=== PATIENT | female | born 1980 | race Caucasian/White ===

== ENCOUNTER → 2018-03-03 15:34 | Outpatient (CLI) | payer OTHER, SELFPAY ==
--- NOTE | 2018-03-03 15:34 | DT_ITS ---
This patient was seen during an EMR downtime February 24, 2018 - March 03, 2018. This patient may have a combination of paper and electronic documentation or all paper documentation. All documentation is viewable within the e-chart portion of [employer] for each patient visit.
[2018-03-03 20:07] LABS: Chlamydia Trachomatis by PCR Negative (Negative); Neisserai gonorrhoeae by PCR Negative (Negative); Probe Check PASS; Sample Adequacy Control PASS; Specimen Processing Control PASS
[2018-03-12 14:25] LABS: HPV Reflexed? NOT INDICATED
== END ==
PROVIDERS: Visit Provider Obstetrics & Gynecology
DX: Z11.3 Encounter for screening for infections with a predominantly sexual mode of transmission (principal); Z12.4 Encounter for screening for malignant neoplasm of cervix
CPT/HCPCS: 87491; 87591; 88175; G0145

== ENCOUNTER → 2018-03-20 11:35 | Outpatient (CLI) | payer OTHER, SELFPAY ==
[2018-03-20 12:16] LABS: Color, Urine Straw (Yellow); Glucose, Dipstick Normal (Normal); Ketone-Dipstick Negative (Negative); Leukocyte Esterase-Dipstick Negative /ul (Negative); Nitrite-Dipstick Negative (Negative); Occult Blood-Urine Negative /ul (Negative); Protein-Dipstick Negative (Negative); Urine Bilirubin Dipstick Negative (Negative); Urine Clarity Clear (Clear); Urine Urobilinogen Normal (Normal)
[2018-03-20 12:21] LABS: Absolute Lymphocyte Count 1.65 X10^3/ul (0.83-4.51); Absolute Neutrophil Count 5.2 X10^3/uL (2.0-7.7); Eosinophil# 0.01 X10^3/uL; Eosinophils% 0.1 % (0-5); Hematocrit 38.4 % (37-47); Hemoglobin 12.1 g/dl (12.0-15.0); Lymphocyte # 1.65 X10^3/ul (4.0); Lymphocyte % 22.9 % (19-41); Mean Corp Hgb Conc 31.5 g/gl (32-36); Mean Corpuscular Hgb 25.9 pg (27.0-32.0); Mean Corpuscular Volume 82.1 fL (81-99); Mean Platelet Vol. 10.3 fl (6.2-12.0); Monocyte# 0.38 X10^3/uL; Monocyte% 5.3 % (0-10); Neutrophil # 5.15 X10^3/uL (2.7-7.7); Neutrophil % 71.6 % (47-70); Platelet Count 221 K/mm3 (150-450); RBC Distribution Width CV 13.9 % (11.6-14.6); RBC Distribution Width SD 41.4 fl (35.1-43.9); Red Blood Count 4.68 M/mm3 (4.2-5.4); White Blood Count 7.2 K/mm3 (4.4-11.0)
[2018-03-20 12:23] LABS: POSITIVE COUNT NO; POSITIVE DIFFERENTIAL NO; POSITIVE MORPHOLOGY NO
[2018-03-20 12:29] LABS: Amphetamine Urine VISTA NEGATIVE (<1000 ng/mL); Barbiturate Urine VISTA NEGATIVE (< 200 ng/mL); Benzodiazepine Urine VISTA NEGATIVE (< 200 ng/mL); Cocaine Urine VISTA NEGATIVE (< 300 ng/mL); Ecstacy Urine VISTA NEGATIVE (< 500 ng/mL); Methadone Urine VISTA NEGATIVE (< 300 ng/mL); PCP Urine VISTA NEGATIVE (< 25 ng/mL); THC Urine VISTA NEGATIVE (< 50 ng/mL); Vista UDS pH Range 5
[2018-03-20 12:50] LABS: Thyroid Stim Hormone (TSH) 1.66 uIU/mL (0.358-3.74)
[2018-03-21 05:20] LABS: Prenatal RPR NONREACTIVE (NONREACTIVE)
[2018-03-21 08:48] LABS: HEPATITIS B SURFACE AG Negative (Negative); Hep C Antibodies <0.1 s/co ratio (0.0-0.9)
[2018-03-21 09:15] LABS: HIV - WCH Non-Reactive (Nonreactive); Rubella IgG 71.8 IU/mL
== END ==
PROVIDERS: Visit Provider Obstetrics & Gynecology
DX: Z34.81 Encounter for supervision of other normal pregnancy, first trimester (principal)
CPT/HCPCS: 36415; 80307; 81002; 84443; 85025; 86703; 86762; 86803; 87340

== ENCOUNTER → 2018-08-19 09:50 | Outpatient (CLI) | payer OTHER, SELFPAY ==
[2018-08-19 10:44] LABS: Hematocrit 33.3 % (37-47); Hemoglobin 10.6 g/dl (12.0-15.0); Mean Corp Hgb Conc 31.8 g/gl (32-36); Mean Corpuscular Hgb 26.2 pg (27.0-32.0); Mean Corpuscular Volume 82.4 fL (81-99); Mean Platelet Vol. 9.2 fl (6.2-12.0); Platelet Count 255 K/mm3 (150-450); RBC Distribution Width CV 13.3 % (11.6-14.6); Red Blood Count 4.04 M/mm3 (4.2-5.4); White Blood Count 6.4 K/mm3 (4.4-11.0)
[2018-08-19 10:46] LABS: Scan Indicated on CBC? Y/N NO
[2018-08-19 11:08] LABS: Glucose Challenge Gest 1H 50g 89 mg/dL (70-140)
--- OUTSIDE RECORDS SUMMARY | 2018-10-01 00:06 | XMS RPT_ITS ---
:1980 Author Organization OHIP Care Team Providers Name Role Phone Anthony Briceno Attending Unavailable Anthony Briceno Attending Unavailable Anthony Briceno Attending Unavailable PROBLEMS PROBLEMS DATE TYPE CONDITION / CODE ATTENDING STATUS SOURCE 08/19/2018 Unknown Z34.83 - Encounter Anthony Briceno for supervision of Community other normal Hospital , third Repository trimester / Z34.83(ICD-10) 03/20/2018 Unknown Z34.81 - Encounter Anthony Briceno for supervision of Community other normal Hospital , first Repository trimester / Z34.81(ICD-10) 03/20/2018 Unknown Z11.3 - Encounter Anthony Briceno for screening for Community infections with a Hospital predominantly Repository sexual mode of transmission / Z11.3(ICD-10) PROCEDURES PROCEDURES No Procedure Records FoundRESULTS RESULTS CBC-COMPLETE BLOOD CNT Collected: 08/19/2018 Status: F Source: [facility] NO DIFF 10:00 [facility] RE[facility] TYPE CODE TESTS RESULT OUT OF RANGE REFERENCE UNITS LAB L100.1000 4.4-11.0 K/mm3 Normal WBC 6.4 LAB L100.1200 4.2-5.4 M/mm3 Low RBC 4.04 LAB L100.1300 12.0-15.0 g/dl Low HGB 10.6 LAB L100.1400 37-47 % Low HCT 33.3 LAB L100.1500 81-99 fL Normal MCV 82.4 LAB L100.1600 27.0-32.0 pg Low MCH 26.2 LAB L100.1700 32-36 g/gl Low MCHC 31.8 LAB L100.1810 11.6-14.6 % Normal RDW CV 13.3 LAB L100.1820 35.1-43.9 fl Normal RDW SD 40.0 LAB L100.1900 150-450 K/mm3 Normal PLT 255 LAB L100.2000 6.2-12.0 fl Normal MPV 9.2 Performed By: #### L100.0500 #### [facility] [address] [place], [address] GLUCOSE CHALLENGE GEST Collected: 08/19/2018 Status: F Source: OTF 1H 50G 10:00 AM REPOSITORY TYPE CODE TESTS RESULT OUT OF RANGE REFERENCE UNITS LAB L501.0250 70-140 mg/dL Normal GLU GEST 89 50g 1H Performed By: #### L501.0250 #### [facility] [address] [place], [address] URINE DRUG SCREEN Collected: 03/20/2018 Status: F Source: OTF (VISTA) 11:37 AM REPOSITORY Order Comment: List of Drugs Taken or Suspected? UNK TYPE CODE TESTS RESULT OUT OF RANGE REFERENCE UNITS LAB L505.0075 TO BE Normal CONFIRMED Result Comment: CONFIRMATORY TESTING FOR ALL POSITIVE URINE DRUG SCREEN RESULTS WILL ONLY BE SENT OUT UPON PHYSICIAN ORDER. VISTA Urine Drug Screen methods provide only preliminary analytical test results. A more specific alternate chemical method must be used in order to obtain a confirmed analytical result. Gas chromatography/mass spectrometery (GC/MS) is the preferred confirmatory method. Clinical consideration and professional judgement should be applied to any drug of abuse test result, particularly when preliminary positive results are used. URINE TCA TESTING MUST BE ORDERED SEPARATELY. USE TEST [place]EMONIC: [facility] LAB L505.5005 VISTA UDS PH 5 Normal LAB L505.5015 <1000 ng/mL AMPHETAMINES Normal NEGATIVE LAB L505.5025 < 200 ng/mL BARBITIURATES Normal NEGATIVE LAB L505.5035 < 200 ng/mL BENZODIAZIPINE Normal NEGATIVE LAB L505.5045 < 300 ng/mL COCAINE Normal NEGATIVE LAB L505.5055 < 500 ng/mL ECSTACY Normal NEGATIVE LAB L505.5065 < 300 ng/mL METHADONE Normal NEGATIVE LAB L505.5075 < 300 ng/mL OPIATES Normal NEGATIVE LAB L505.5085 < 25 ng/mL PCP Normal NEGATIVE LAB L505.5095 < 50 ng/mL THC Normal NEGATIVE Performed By: #### L505.5000 #### [facility] [address] [place], [place], [id number] URINALYSIS, ROUTINE Collected: 03/20/2018 Status: F Source: OTF (DIPSTICK) 11:37 AM REPOSITORY Order Comment: How was Urine Obtained? CLEAN CATCH TYPE CODE TESTS RESULT OUT OF RANGE REFERENCE UNITS LAB L400.3000 Yellow COLOR Normal Straw LAB L400.3050 Clear Normal CLARITY Clear LAB L400.3200 Normal mg/dl Normal GLUCOSE, UR Normal LAB L400.3300 Negative mg/dL Normal BILIRUBIN URINE Negative LAB L400.3400 Negative mg/dl Normal KETONE UR Negative LAB L400.3465 1.002-1.030 Normal SP.GR. DIPSTX 1.010 LAB L400.3550 5.0 - 8.0 pH UR Normal 7.0 LAB L400.3600 Negative mg/dl PROT Normal DIPSTX Negative LAB L400.3700 Normal mg/dl Normal UROBILI Normal LAB L400.3750 Negative Normal NITRITE UR Negative LAB L400.3780 Negative /ul Normal OCCULT BLOOD-UR Negative LAB L400.3800 Negative /ul LEUK Normal ESTERASE Negative Performed By: #### L400.2010 #### [facility] [address] [place], [id number] CBC W/DIFF, AUTOMATED Collected: 03/20/2018 Status: F Source: OTF 11:37 AM REPOSITORY TYPE CODE TESTS RESULT OUT OF RANGE REFERENCE UNITS LAB L100.1000 4.4-11.0 K/mm3 Normal WBC 7.2 LAB L100.1200 4.2-5.4 M/mm3 Normal RBC 4.68 LAB L100.1300 12.0-15.0 g/dl Normal HGB 12.1 LAB L100.1400 37-47 % Normal HCT 38.4 LAB L100.1500 81-99 fL Normal MCV 82.1 LAB L100.1600 27.0-32.0 pg Low MCH 25.9 LAB L100.1700 32-36 g/gl Low MCHC 31.5 LAB L100.1810 11.6-14.6 % Normal RDW CV 13.9 LAB L100.1820 35.1-43.9 fl Normal RDW SD 41.4 LAB L100.1900 150-450 K/mm3 Normal PLT 221 LAB L100.2000 6.2-12.0 fl Normal MPV 10.3 LAB L100.2100 47-70 % High NEUT% 71.6 LAB L100.2200 19-41 % Normal LY% 22.9 LAB L100.2300 0-10 % Normal MONO% 5.3 LAB L100.2400 0-5 % Normal EO% 0.1 LAB L100.2500 0-1 % Normal BASO% 0.0 LAB L100.2550 0.0-0.9 % Normal IM GRAN % 0.100 Result Comment: IG% - Immature Granulocytes (promyelocytes, myelocytes and metamyelocytes) > 1% indicates that a LEFT SHIFT is Present. LAB L100.2620 2.0-7.7 X10 3/uL Normal Absolute Neut 5.2 LAB L100.2720 0.83-4.51 X10 3/ul Normal Absolute Lymph 1.65 Performed By: #### L100.0100 #### [facility] [address] [place], [place], [id number] THYROID STIM HORMONE Collected: 03/20/2018 Status: F Source: [place] (TSH) 11:37 AM REPOSITORY TYPE CODE TESTS RESULT OUT OF RANGE REFERENCE UNITS LAB L501.9520 0.358-3.74 uIU/mL Normal TSH 1.66 Performed By: #### L501.9520 #### [facility] [address] [place], [place], [address] T AND S-NO Collected: 03/20/2018 Status: F Source: OTF CHARGE W/PNP 11:37 AM REPOSITORY Order Comment: Reason for Type AND Screen/Red Cells: Surgery? N TYPE CODE TESTS RESULT OUT OF RANGE REFERENCE UNITS LAB B10.0800 A Normal BLOOD POSITIVE TYPE GEL LAB B100.4050 Normal Ab SCREEN NEGATIVE GEL Performed By: #### B100.7550 #### [facility] [address] [place], [place], [address] RPR Collected: 03/20/2018 Status: F Source: OTF 11:37 AM REPOSITORY TYPE CODE TESTS RESULT OUT OF REFERENCE UNITS RANGE LAB L700.5100 NONREACTIVE Normal RPR NONREACTIVE Performed By: #### L700.5100 #### [facility] [address] [place], [place], [id number] HEPATITIS B SURFACE Collected: 03/20/2018 Status: F Source: OTF AG 11:37 AM REPOSITORY TYPE CODE TESTS RESULT OUT OF RANGE REFERENCE UNITS LAB L3100.0400 Negative Normal HB Negative SURF AG Result Comment: Performed at: - [facility] [id number] Rim Turning Machine Operator: Rl Antoine PhD, Phone: [phone] Performed By: #### L3100.0390, L3100.0625 #### [facility] (refer to report for specific site) refer to report for address and phone number HEPATITIS C ANTIBODIES Collected: 03/20/2018 Status: F Source: OTF 11:37 AM REPOSITORY TYPE CODE TESTS RESULT OUT OF RANGE REFERENCE UNITS LAB L3100.0650 0.0-0.9 s/co ratio Normal HEP C AB <0.1 Result Comment: Negative: < 0.8 Indeterminate: 0.8 - 0.9 Positive: > 0.9 The CDC recommends that a positive HCV antibody result be followed up with a HCV Nucleic Acid Amplification test (793275). Performed By: #### L3100.0390, L3100.0625 #### [facility] (refer to report for specific site) refer to report for address and phone number RUBELLA IGG Collected: 03/20/2018 Status: F Source: [place] 11:37 AM REPOSITORY TYPE CODE TESTS RESULT OUT OF RANGE REFERENCE UNITS LAB L509.4000 IU/mL Normal Rubella IgG 71.8 Result Comment: Antibody results Interpretation of Immune Status < 5 IU/ml Presumed Non-immune 5 - < 10 IU/ml Equivocal > or = 10 IU/ml Presumed Immune Performed By: #### L509.4000, L3890.6005 #### [facility] [address] [place], [address] HIV - [facility] Collected: 03/20/2018 Status: F Source: [place] 11:37 AM REPOSITORY TYPE CODE TESTS RESULT OUT OF RANGE REFERENCE UNITS LAB L3890.6005 Nonreactive Normal HIV - [facility] Non-Reactive Performed By: #### L509.4000, L3890.6005 #### [facility] [address] [place], [place], [address] DOWNTIME REPORT Observed: 03/13/2018 Status: F Source: [place] 2:13 PM REPOSITORY [facility] Medical Records Department [address] [place] [address] Downtime Report MR#: [id number] Acct: [id number] Name: MAURILIO BRIDGES Rep #: [id number] : 1980 37 From: Jason Garcia PCP: Status: REG CLI This patient was seen during an EMR downtime February 24, 2018 - March 03, 2018. This patient may have a combination of paper and electronic documentation or all paper documentation. All documentation is viewable within the e-chart portion of [employer] for each patient visit. CT/NG [facility] BY PCR Collected: 03/03/2018 Status: F Source: [place] 2:45 PM REPOSITORY TYPE CODE TESTS RESULT OUT OF RANGE REFERENCE UNITS LAB L8200.2100 Negative Normal Chlam Negative Trac PCR LAB L8200.2200 Negative Normal NG by Negative PCR Performed By: #### L8200.1999 #### [facility] [address] [place], [place], [address] PAP IG W/REFLEX HR Collected: 03/03/2018 Status: F Source: OTF HPV APTIMA 2:45 PM REPOSITORY Order Comment: CYTOLOGY INFORMATION: - CLINICAL INFORMATION: - DATE LMP/MENOPAUSE: 01/23/18 LMP - COLLECTION VIAL: Thin Prep Vial - NON EMERGENCY SERVICES AMBULANCE DRIVER SOURCE: CERVICAL/ENDOCERVICAL - COLLECTION TECHNIQUE: BRUSH/SPATULA Specimen Comment: [id number] Specimen Comment: No. of containers..01 ThinPrep Vial TYPE CODE TESTS RESULT OUT OF RANGE REFERENCE UNITS LAB L7400.0800 . Normal DIAGN Comment Result Comment: NEGATIVE FOR INTRAEPITHELIAL LESION AND MALIGNANCY. CELLULAR CHANGES ASSOCIATED WITH INFLAMMATION ARE PRESENT. THIS SPECIMEN WAS RESCREENED PART OF OUR PRODUCTION PLANNER SCHEDULER PROGRAM. LAB L7400.0900 . Normal ADEQ Comment Result Comment: Satisfactory for evaluation. Endocervical and/or squamous metaplastic cells (endocervical component) are present. LAB L7400.1400 . Normal PERFORM Comment Result Comment: Jumana Cardozo, Manager Of Global (ASCP) LAB L7400.1500 . Normal QC Comment REV Result Comment: Wanda Meadows, Supervisory Manager Of Global (ASCP) LAB L7400.2575 . Normal TEST METHOD Comment Result Comment: This liquid based ThinPrep(R) pap test was screened with the use of an image guided system. LAB L7400.2600 . Normal . COMM LAB L7400.2700 . Normal PAPSMR Comment Result Comment: The Pap smear is a screening test designed to aid in the detection of premalignant and malignant conditions of the uterine cervix. It is not a diagnostic procedure and should not be used as the sole means of detecting cervical cancer. Both false-positive and false-negative reports do occur. LAB L7400.2800 . Normal HPV RFLX Comment Result Comment: The HPV DNA reflex criteria were not met with this specimen result therefore, no HPV testing was performed. Performed at: - [facility] [id number] Rim Turning Machine Operator: Cortney Sellers MD, Phone: [phone] Performed By: #### L7400.0357 #### [facility] (refer to report for specific site) refer to report for address and phone number OBSOLETE Observed: 10/22/2017 Status: COMPLETED Source: [place] 12:00 AM [facility] MAURILIO BRIDGES ([id number]) 1980 F Date Time Provider Department 10/22/17 MICHAEL ESTRADA FAMPWS During your visit today, we recorded the following information about you: Michael Estrada DO 10/22/2017 12:52 PM Signed Please fax Ativan rx to [facility] Jordan L Garrison, DO Patient's request for medication is as follows: Signed Prescriptions Disp Refills LORazepam (ATIVAN) 0.5 mg tab 20 tablet 1 Sig: Take 1 tablet by mouth twice daily as needed (anxiety) for up to 10 days. JOÃO Class: C-IV MINI: No Authorizing Provider: MICHAEL ESTRADA FLUoxetine (PROZAC) 10 mg tablet 30 tablet 3 Sig: Take 1 tablet by mouth once daily. Authorizing Provider: MICHAEL ESTRADA Prescription(s) as above. Please process accordingly. DO Salas Rosa LPN 10/22/2017 1:26 PM Signed Rx pending to print. Please file and will fax to pharmacy. Salas Chaudhari LPN 10/22/2017 4:57 PM Signed Rx(s) faxed to pharmacy. Salas Chaudhari LPN Allergies As of Date: 10/22/2017 Noted Allergy Reaction BEE STING 07/21/2014 7 - Swelling environmental [Other] 06/11/2011 14 - Other: See Comments Comments: cat, dog, cockroach, dustmites, molds, trees, grass, weed, ragweed Date Reviewed: 04/01/2017 Reviewed by: Toña (Rn) CONNER Watson - Fully Assessed Visit Diagnosis:Anxiety [F41.9] Order(s):FLUoxetine (PROZAC) 10 mg tabletTake 1 tablet by mouth once daily.Disp: 30 tabletRfl: 3 LORazepam (ATIVAN) 0.5 mg tabTake 1 tablet by mouth twice daily as needed (anxiety) for up to 10 days.Disp: 20 tabletRfl: 1 Prescriptions as of 10/22/2017 Sig: FLUOXETINE 10 MG TABLET Take 1 tablet by mouth once d* LORAZEPAM 0.5 MG TABLET Take 1 tablet by mouth twice * DROSPIRENONE 3 MG-ETHINYL EST* Take 1 tablet by mouth once d* MONTELUKAST 10 MG TABLET Take 1 tablet by mouth daily * ALBUTEROL SULFATE HFA 90 MCG/* Inhale 2 Puffs as instructed * EPINEPHRINE 0.3 MG/0.3 ML INJ* Inject as directed at onset o* FLUTICASONE 50 MCG/ACTUATION * Use 1 [place] in each nostril o* Problem List As Of Date 10/22/2017 Noted Resolved Anxiety [F41.9] INVALID FOR* Fatigue [R53.83] INVALID FOR* Myalgia [M79.1] INVALID FOR* Arthralgia [M25.50] INVALID FOR* Allergic rhinitis [J30.9] INVALID FOR* Asthma, mild persistent [J45.30] INVALID FOR* More... Prescriptions ordered this encounter Disp Refills Start End LORAZEPAM 0.5 MG TABLET 20 t* 1 10/22/2017 10/22/2017 Class: Call Rx Route: ORAL Sig: Take 1 tablet by mouth twice daily as needed (anxiety) for up to 10 days. FLUOXETINE 10 MG TABLET 30 t* 3 10/22/2017 Route: ORAL Sig: Take 1 tablet by mouth once daily. LORAZEPAM 0.5 MG TABLET 20 t* 1 10/22/2017 11/01/2017 Class: Print RX Route: ORAL Sig: Take 1 tablet by mouth twice daily as needed (anxiety) for up to 10 days. Medications Discontinued During This Encounter LORazepam (ATIVAN) 0.5 mg tab 20 t* 1 10/22/2017 10/22/2017 Class: Call Rx Route: ORAL Sig: Take 1 tablet by mouth twice daily as needed (anxiety) for up to 10 days. Disc: Reason for discontinue is not on file. Encounter Status:Closed by SALAS CHAUDHARI LPN on 10/22/17 ALLERGIES ALLERGIES DATE TYPE / CODE NAME / CODE REACTION SEVERITY SOURCE 01/26/2017 [facility] No Known [facility]F00 [facility] [address](SNOMED 3605255(RXNOR Repository CT) M) ENCOUNTERS ENCOUNTERS ADMIT/DISCHARGE ACCOUNT ADMITTING ENCOUNTER LOCATION SOURCE NUMBER CLASS 08/19/2018 [id number] Ambulatory [place] 9 [facility] ing:WOBLAB Repository 03/20/2018 [id number] Ambulatory [place] 9 [facility] ing:WOBLAB Repository 03/03/2018 [id number] Ambulatory [place] 4 [facility] ing:LABSPEC Repository PAYERS PAYERS ENCOUNTER GUARANTOR PAYER SUBSCRIBER SOURCE 08/19/2018 Shola Primary BHARGAV J HOLTDOB: [place] [id number] [place] Insurance:MEDICAL [id number] [address]Xiu: (419) Number: Repository [phone] () [id number] Date:[id number] [address] [address]SJ: 08/19/2018 Secondary NOT GIVENUNK Otf Insurance:SELF PAY [facility] Number: Effective Repository Date:2018-08-19 03/20/2018 Shola Primary BHARGAV J HOLTDOB: Otf [id number] [place] Insurance:MEDICAL [id number] [id number]: (419) Number: Repository [phone] () [id number] Date:[id number] [address]AX: 03/20/2018 Secondary NOT GIVENUNK Oft Insurance:SELF PAY [facility] Number: Effective Repository Date:2018-03-20 03/03/2018 Shola Primary BHARGAV J HOLTDOB: [place] [id number] [place] Insurance:MEDICAL [id number] [address]Olu: (419) Number: Repository [phone] () [id number] Date:[id number] [address]FT: 03/03/2018 Secondary NOT GIVENUNK Otf Insurance:SELF PAY [facility]: Effective Repository Date:2018-03-03
== END ==
PROVIDERS: Visit Provider Obstetrics & Gynecology
DX: Z34.83 Encounter for supervision of other normal pregnancy, third trimester (principal)
CPT/HCPCS: 36415; 82950; 85027

== ENCOUNTER → 2018-10-06 14:15 | Outpatient (CLI) | payer OTHER, SELFPAY ==
[2017-01-26 00:07] VITALS: BMI 24.7
== END ==
PROVIDERS: Visit Provider Obstetrics & Gynecology
DX: Z36.85 Encounter for antenatal screening for Streptococcus B (principal)
CPT/HCPCS: 87081

== ENCOUNTER 2018-11-04 23:40 | Inpatient (IN) | payer OTHER, SELFPAY ==
[2017-01-26 00:07] VITALS: BMI 24.7
[2018-11-04 22:34] VITALS: BMI 34.7
[2018-11-04] MEDS: Lactated Ringers 1,000 ML 50 ML IV (23:50)
--- NOTE | 2018-11-04 23:55 | PCM.HP.OB ---
- Problem List (1) 40 weeks gestation of Status: Acute (2) (spontaneous vaginal delivery) Status: Acute History Date of Admission: 11/04/18 Final ETTA: 10/30/18 Final ETTA Source: US <20 weeks Gestational age: 40 Weeks and 6 Days History of this : This is a 38 year-old, G [4], P [3003], at 40.5 weeks gestational age presenting with painful contractions. Medical History: Medical History (Last Updated 11/05/18 @ 03:48 by Nena Velez MD) Sinusitis J32.9 taking Cefdinir Allergies Latex, Natural Rubber Allergy (Verified 11/04/18 22:34) Hives Sulfa (Sulfonamide Antibiotics) Allergy (Verified 11/04/18 22:34) Hives Home Medications: Home Medications Cefdinir 300 mg PO BID 11/04/18 Pnv No.95/Ferrous Fum/Folic AC [ Vitamin Tablet] 1 each PO DAILY 11/04/18 Docusate Sodium [Colace] 100 mg PO BID PRN PRN #60 capsule 11/05/18 Ibuprofen 600 mg PO TID PRN #30 tablet 11/05/18 Smoking Status: Never smoker Alcohol: None Number of Fetus(es): 1 Heart Tracin, moderate variability, + accelerations, no decelerations TOCO Analysis: 4/10 min History Past Pregnancies: Past Pregnancies Delivery Date GA/Weeks Outcome Route Weight Infant Gender Labor Length Anesthesia Delivery Location 01/2007 40 Living 7#10 M 8 Epidural Otf 12/2008 40 Living 6#10 F 10 Epidural [place] 11/2012 40 Living 6#10 F 3 Epidural Otf Labs: Mom's Problem List Problem Status Onset Code 40 weeks gestation of Acute Z3A.40 (spontaneous vaginal delivery) Acute O80 Mom's Labs & Results 11/04/18 11/04/18 23:50 23:50 WBC 8.2 RBC 4.16 L Hgb 10.7 L Hct 34.2 L MCV 82.2 MCH 25.7 L MCHC 31.3 L RDW 15.2 H RDW Differential 44.9 H Plt Count 242 MPV 10.0 Blood Type A POSITIVE Antibody Screen NEGATIVE Course Did the patient receive Yes care? Labs Blood Type: A RH: POSITIVE RPR/VDRL/Syphilis Nonreactive Rubella status Immune HbSAg Negative Date Done: 03/20/18 Chlamydia Negative Gonorrhea Negative HIV/AIDS Non-Reactive Group B Strep: Negative Current Obstetrical History Gestational Diabetes No Incompetent Cervix No Infertility No IUGR No Macrosomia No Hypertension/Pre-eclampsia No Placenta Previa/Abruption No PTL/PROM No Uterine anomaly No Oligohydramnios No Polyhydramnios No Multiple gestation No Past Medical History Asthma Yes: allergy induced Diabetes No Hypertension No Heart disease No Mitral valve prolapse No Neurologic/Seizure disorder/ No Migraines Kidney disease No Liver disease No Varicosities No Clotting disorders/Hx of DVT No Thyroid Dysfunction No Other medical diseases No Psychiatric disorders No Major trauma No Abnormal PAP smear No Sleep apnea No Mammogram in the last 2 years No Social History Marital Status: Alleged father [place] Hx Smoking No Smoking Status Never smoker Expected Infant Delivery Method: Spontaneous Vaginal Physical Exam Vitals: avss General: Alert, Oriented x3, Cooperative, No apparent distress HEENT: Atraumatic, Normocephalic Abdomen: Soft, Non Tender, Non-Distended, Gravid Neurological: Neuro grossly intact IMAGING CENTER MANAGER: Normal external genitalia Estimated gestational size: Appropriate for gestational size Presentation: Cephalic Cervix Dilation (cm): 4 Station: -3 Effacement (%): 75 Assessment/Plan All Active Problems (Last Updated 11/05/18 @ 03:48 by Nena Velez MD) 40 weeks gestation of (Acute) (spontaneous vaginal delivery) (Acute) This is a 38 year-old, G 4[], P 3[], at 40.6 weeks gestational age in labor, Cat I FHR -Admit -Epidural per patient request -Maternal and statuses reassuring
[2018-11-05 00:15] LABS: Hematocrit 34.2 % (37-47); Hemoglobin 10.7 g/dl (12.0-15.0); Mean Corp Hgb Conc 31.3 g/gl (32-36); Mean Corpuscular Hgb 25.7 pg (27.0-32.0); Mean Corpuscular Volume 82.2 fL (81-99); Platelet Count 242 K/mm3 (150-450); RBC Distribution Width CV 15.2 % (11.6-14.6); RBC Distribution Width SD 44.9 fl (35.1-43.9); Red Blood Count 4.16 M/mm3 (4.2-5.4); White Blood Count 8.2 K/mm3 (4.4-11.0)
[2018-11-05 00:18] LABS: Scan Indicated on CBC? Y/N NO
[2018-11-05] MEDS: Ondansetron 4 MG/2 ML Vial IV (00:47)
[2018-11-05] MEDS: Lactated Ringers 1,000 ML 50 ML IV (00:50)
[2018-11-05] MEDS: fentaNYL-bupivacaine (epidural) 100 ML BAG EPIDURAL (01:15)
[2018-11-05] MEDS: Oxytocin 30 units/NS 500 ml 30 UNITS/500 ML IV.SOLN 334 UNITS IV (03:19)
--- NOTE | 2018-11-05 03:37 | PCM.OPRPT ---
Problem List (1) 40 weeks gestation of Status: Acute (2) (spontaneous vaginal delivery) Status: Acute Vaginal Delivery Maternal Presentation: Active Labor Amniotic Membrane Rupture Type: Spontaneous Rupture of Membrane time: 11/05/18 0130h Amniotic Fluid Description: Moderate meconium Final ETTA: 10/30/18 Final ETTA Source: US <20 weeks Gestational age: 40 Weeks and 6 Days doctor who attended delivery (if requested by OB): Laura Henry Date of Procedure: 11/05/18 Pre-Operative Diagnosis: 40 6/7wga Post-Operative Diagnosis: 40 6/7wga Surgery/ Procedure Performed: Spontaneous Vaginal Delivery Anesthesiologist: Stephanie Ortez Type of Anesthesia: Epidural Description of Procedure: Patient was FD/+1 station and pushed to deliver a vigorous female infant in GUNNAR. The infant mouth and nares were suctioned at the perineum. The infant was placed on the maternal abdomen and further attended by nursery personnel and the Pediatric Hospitalist. The cord was doubly clamped and cut. The placenta delivered spontaneously and appeared intact on inspection. A denis catheter was placed given > 2 hours since last void. A second degree perineal laceration was repaired with 3-0 Vicryl Rapide. Sponge and needle counts were correct x 2. Presentation: Vertex Placental Delivery Description: Spontaneous Placenta Disposition: [facility] Cord Vessel Description: 3 Vessels Nuchal Cord Compression: Without compression Drain: Denis to straight drain Estimated Blood Loss: 250 ml A gender: Female (1 minute): 8 (5 minute): 9 Episiotomy Description: None Laceration: Midline, Perineal Extension/lac, 2nd degree Medications given after delivery: IV Pitocin Complications: None
--- NOTE | 2018-11-05 03:41 | OP.PCM_ITS ---
Problem List (1) 40 weeks gestation of Status: Acute (2) (spontaneous vaginal delivery) Status: Acute Vaginal Delivery Maternal Presentation: Active Labor Amniotic Membrane Rupture Type: Spontaneous Rupture of Membrane time: 11/05/18 0130h Amniotic Fluid Description: Moderate meconium Final ETTA: 10/30/18 Final ETTA Source: US <20 weeks Gestational age: 40 Weeks and 6 Days doctor who attended delivery (if requested by OB): Laura Cook Date of Procedure: 11/05/18 Pre-Operative Diagnosis: 40 6/7wga Post-Operative Diagnosis: 40 6/7wga Surgery/ Procedure Performed: Spontaneous Vaginal Delivery Anesthesiologist: Stephanie Ortez Type of Anesthesia: Epidural Description of Procedure: Patient was FD/+1 station and pushed to deliver a vigorous female in GUNNAR. The mouth and nares were suctioned at the perineum. The infant was placed on the maternal abdomen and further attended by nursery personnel and the Pediatric Hospitalist. The cord was doubly clamped and cut. The placenta delivered spontaneously and appeared intact on inspection. A denis catheter was placed given > 2 hours since last void. A second degree perineal laceration was repaired with 3-0 Vicryl Rapide. Sponge and needle counts were correct x 2. Presentation: Vertex Placental Delivery Description: Spontaneous Placenta Disposition: [facility] Cord Vessel Description: 3 Vessels Nuchal Cord Compression: Without compression Drain: Denis to straight drain Estimated Blood Loss: 250 ml Infant A gender: Female (1 minute): 8 (5 minute): 9 Episiotomy Description: None Laceration: Midline, Perineal Extension/lac, 2nd degree Medications given after delivery: IV Pitocin Complications: None
--- NOTE | 2018-11-05 03:43 | DCINST_ITS ---
Discharge Diet: No Restrictions Discharge Activity: Return to Normal Activity, May not drive while taking narcotic pain medications., May Shower, May Take a Tub Bath May resume sexual activity in: 6 weeks Lifting Restrictions: 20 lb Call your doctor if you observe: Fever of 101 or Higher, Inability to urinate, Inability to have a bowel movement, Using more than one pad per hour, Shortness of breath, Chest pain, Calf discomfort, Uncontrolled pain Cleanse incision/area with: Soap & Water Additional Instructions: If you experience any of the following, contact your healthcare provider. * Bleeding that soaks a pad every hour for 2 hours * Fever 100.4 or higher * Unrelieved incision or abdominal pain * Swelling, redness, discharge or bleeding from your incision or episiotomy site * Your incision begins to separate * Problems urinating (including inability to urinate or burning while urinating). * Visual changes * Severe headache * Flu-like symptoms * Pain or redness in one of both of your breasts * Pain, warmth, tenderness or swelling in your legs, especially the calf area * Frequent nausea and vomiting * Symptoms of depression or anxiety If you experience any of the following, call 911 or go to the nearest Emergency Room. * Chest pain * Problems breathing * Seizure activity * Partial or complete paralysis of a body part, slurred speech, weakness or drooping of the face, or a sudden inability to walk or hold your balance Allergies/Adverse Reactions: Allergies Latex, Natural Rubber Allergy (Verified 11/04/18 22:34) Hives Sulfa (Sulfonamide Antibiotics) Allergy (Verified 11/04/18 22:34) Hives Medications to take at Discharge Cefdinir 300 mg PO BID 11/04/18 Pnv No.95/Ferrous Fum/Folic AC [ Vitamin Tablet] 1 each PO DAILY 11/04/18 Docusate Sodium [Colace] 100 mg PO BID PRN PRN #60 capsule 11/05/18 Ibuprofen 600 mg PO TID PRN #30 tablet 11/05/18 The following prescriptions were given: Docusate Sodium [Colace] 100 mg PO BID PRN PRN #60 capsule PRN Reason: Constipation Ibuprofen 600 mg PO TID PRN #30 tablet PRN Reason: Pain Please Follow Up With: Anthony Briceno MD When: 6 weeks Primary Care Physician: Schwartz,Michael, DO [Primary Care Provider] - Test Results: Test results from this visit will be discussed in further detail at your follow- up appointment, if applicable.
[2018-11-05] MEDS: Oxytocin 30 units/NS 500 ml 30 UNITS/500 ML IV.SOLN 167 UNITS IV (03:49)
[2018-11-05] MEDS: 0.9% Saline Lock 10 ML Syringe IV (05:15)
[2018-11-05 05:30] VITALS: BP 115/63; PULSE 82; RESP 18; TEMP 36.3; O2SAT 95
[2018-11-05 07:46] VITALS: BP 105/60; PULSE 79; RESP 16; TEMP 36.4; O2SAT 99
[2018-11-05] MEDS: Ibuprofen 600 MG Tablet PO ×3 (07:46→20:13)
[2018-11-05] MEDS: Prenatal Vits Tablet 1 TABLET PO (09:12)
[2018-11-05] MEDS: Cefdinir 300 MG Capsule PO ×2 (09:13→20:14)
[2018-11-05 11:25] VITALS: BP 101/66; PULSE 61; RESP 16; TEMP 36.1; O2SAT 99
[2018-11-05 16:19] VITALS: BP 100/58; PULSE 68; RESP 16; TEMP 36.2; O2SAT 97
[2018-11-05] MEDS: Acetaminophen 325 MG Tablet PO (17:52)
[2018-11-05 20:15] VITALS: BP 108/60; PULSE 74; RESP 17; TEMP 36.3
[2018-11-05 23:25] VITALS: BP 122/78; PULSE 71; RESP 17; TEMP 35.9
[2018-11-06] MEDS: Ibuprofen 600 MG Tablet PO (02:04)
[2018-11-06 03:35] VITALS: BP 118/72; PULSE 74; RESP 17; TEMP 36
[2018-11-06 08:20] VITALS: BP 108/61; PULSE 76; RESP 16; TEMP 35.9
--- NOTE | 2018-11-06 09:40 | PN.OBGYN_ITS ---
Patient Problems: Active and Suspected Problems (Last Updated 11/05/18 @ 03:48 by Nena Schmitz MD) 40 weeks gestation of (Acute) (spontaneous vaginal delivery) (Acute) Subjective: No issues overnight. Denies heavy lochia. She is bottlefeeding. Objective: avss - Physical Exam General: Alert, Oriented x3, Cooperative, No apparent distress HEENT: Atraumatic, Normocephalic Lungs: Clear to auscultation, Normal air movement Cardiovascular: Regular rate, Regular Rhythm, Normal S1, Normal S2 Abdomen: Soft, Non Tender, Non-Distended, - - Fundus firm and nontender, lochia moderate Extremities: No Calf Tenderness, - - trace LE edema Neurological: Neuro grossly intact Psych/Mental Status: Normal Affect, Appropriate, Alert and oriented to time, place, person, mood and affect Vital Signs Temp Pulse Resp BP Pulse Ox 96.6 F L 76 16 108/61 97 11/06/18 08:20 11/06/18 08:20 11/06/18 08:20 11/06/18 08:20 11/05/18 16:19 Oxygen Delivery Method Room Air Weight: 86.1 kg Body Mass Index (BMI) 34.7 Intake and Output for Last 24 Hours 11/04/18 11/05/18 11/06/18 23:59 23:59 23:59 Intake Total 2296 / 2296 Output Total 1900 / 1900 Balance 396 / 396 Medical Necessity - Tobacco Use Smoking Status: Never smoker Assessment/Plan All Active Problems (Last Updated 11/05/18 @ 03:48 by Nena Velez MD) 40 weeks gestation of (Acute) (spontaneous vaginal delivery) (Acute) This is a 38 year-old, G 4[], P 4004 PPD#1 s/p doing well. -Bottlefeeding -Male infant, circ pending -Routine care -D/c home later today
[2018-11-06] MEDS: Cefdinir 300 MG Capsule PO (10:02)
[2018-11-06] MEDS: Prenatal Vits Tablet 1 TABLET PO (10:02)
== END 2018-11-06 10:45 | disposition home or self-care (01) | DRG 807 ==
LOC: WPOUT 23:40
PROVIDERS: Admitting Provider Obstetrics & Gynecology; Family Provider Student in an Organized Health Care Education/Training Program; PCP Student in an Organized Health Care Education/Training Program; Visit Provider Obstetrics & Gynecology
DX: O48.0 Post-term pregnancy (principal); Z37.0 Single live birth; Z3A.40 40 weeks gestation of pregnancy; O70.1 Second degree perineal laceration during delivery; O69.81X0 Labor and delivery complicated by cord around neck, without compression, not applicable or unspecified
CPT/HCPCS: 59025; 59050; 85027; 86850; 86900; 99218; J7120; A4216; G0378; J2405

== ENCOUNTER → 2018-12-22 06:51 | Outpatient (CLI) | payer OTHER, SELFPAY ==
--- NOTE | 2018-12-22 06:58 | CT_ITS ---
STUDY: CT MAXILLOFACIAL SINUSES REASON FOR EXAM: Female, 38 years old. Sinusitis RADIATION DOSAGE (If Supplied By Facility): CTDIvol = ( 33.06 ) mGy, DLP = ( 780.13 ) mGycm TECHNIQUE: The patient was scanned in a multi detector CT scanner. High resolution axial imaging was performed without the administration of intravenous contrast material. Sagittal and coronal images were reconstructed. Individualized dose optimization techniques were used for this CT. COMPARISON: None. FINDINGS: The mastoid air cells appear clear. There is rightward shift of the nasal septum. No acute fractures seen. There is a left maxillary sinus mucus retention cyst versus polyp 1.8 cm. Minimal paranasal sinus thickening within the maxillary and sphenoid sinuses. There is no air-fluid levels present. The bilateral globes appear intact. There is no significant intraconal fatty stranding identified. Visualized aspects of the brain appear unremarkable. CT/Sinus/Facial Bone IMPRESSION: Left maxillary sinus mucus retention cyst versus polyp. Mild paranasal sinus disease. There is no air-fluid levels identified. Other findings as discussed above. Electronically Signed: Salas Aguiar, at 6:03 EDT Tel , Service support ,
== END ==
PROVIDERS: Family Provider Student in an Organized Health Care Education/Training Program; PCP Student in an Organized Health Care Education/Training Program; Referring Provider Otolaryngology; Visit Provider Otolaryngology
DX: J32.9 Chronic sinusitis, unspecified (principal)
CPT/HCPCS: 70486